=== PATIENT | female | born 2000 | race Caucasian/White ===

== ENCOUNTER 2020-08-16 14:46 | Emergency (ER) | payer BC, SELFPAY ==
--- NOTE | ~2020-08-16 | US_ITS ---
EXAMINATION: US pelvic complete DATE: 08/16/2020 15:42 INDICATION: Pelvic pain TECHNIQUE: Multiple transabdominal and endovaginal sonographic images of the pelvis were obtained. COMPARISON: None. FINDINGS: The uterus measures 7.5 x 3.0 x 3.7 cm. The endometrial complex measures <2 9 2 mm mm in thickness. T-shaped IUD in expected position within the endometrial canal. There is a small amount of anechoic f luid within the endocervical canal. 4 mm nonshadowing echogenic nodule centered by small amount of an echoic fluid within the endocervical canal. The right ovary is not visualized The left ovary measures 2.7 x 2.2 x 1.9 cm. 1.8 cm anechoic cyst/follicle in the left ovary. As for flow with arterial wavef orm in the left ovary. There is no free fluid in the pelvis. IMPRESSION: 1. IUD in expected position within the endometrial canal. 2. Small amount of fluid surrounding a 4 mm nodular echogenic region in the endocervical canal which could represent transient clot, string related to the IUD or a cervical polyp. Consider follow-up ult rasound or hysteroscopy for determination. Reviewed, dictated and finalized at location A. IMPRESSION: 1. IUD in expected position within the endometrial canal. 2. Small amount of fluid surrounding a 4 mm nodular echogenic region in the end ocervical canal which could represent transient clot, string related to the IUD or a cervical polyp. Consider follow-up ultrasound or hysteroscopy for determi nation.
[2020-08-16 14:49] VITALS: BP 134/73; PULSE 83; RESP 18; TEMP 36.5; O2SAT 100
--- NOTE | 2020-08-16 14:53 | ED.ABDPAIN ---
HPI - Abdominal Pain General Chief Complaint: Abdominal Pain Stated Complaint: left abd pain Time Seen by Provider: 08/16/20 14:49 History of Present Illness HPI narrative: Pelvic pain for the past 2 days. Started suddenly 2 days ago. Severe. Left sided. radiated into the left thigh. Seemed to subside that night. Returned this morning. Feels like period cramps, but worse. No associated symptoms. She has not taken anything for her pain today. she has had an IUD for the past 3 years. Related Data Allergies Allergy/AdvReac Type Severity Reaction Status Date / Time No Known Allergies Allergy Unverified 08/16/20 14:52 Review of Systems Review of Systems: All systems reviewed & are unremarkable except as noted in HPI and below Constitutional: Constitutional: Denies chills and Denies fever(s) Cardiovascular: Cardiovascular: Denies chest pain Respiratory: Respiratory: Denies cough and Denies dyspnea Gastrointestinal: Gastrointestinal: Denies constipation, Denies diarrhea, Denies nausea and Denies vomiting Genitourinary: Genitourinary: Denies hematuria, Denies nocturia, Denies dysuria and Reports pelvic pain Musculoskeletal: Musculoskeletal: Denies back pain Neurologic: Denies dizziness and Denies weakness [facility] Past Medical History Medical History IUD (intrauterine device) in place Social History Social History Gender identity (if verbalized by the patient): Female Exam Const: General: healthy appearing, no acute distress and alert Orientation/consciousness: patient oriented x3 HENMT: Head: normal to inspection Neck: Neck: normal visual inspection and no lymphadenopathy Chest: Chest palpation & inspection: no tenderness Resp: Effort & Inspection: normal respiratory effort Auscultation: clear to auscultation bilaterally, no rales, no rhonchi and no wheezes Cardio: Jugular venous distension: no JVD Rate: regular rate Rhythm: regular rhythm Heart sounds: no murmurs GI: Inspection: non-distended GI Palp: Yes Soft to palpation and No Tenderness to palpation present (GI) : External Female Exam: normal external appearance Speculum Exam - Vagina: abnormal vaginal discharge malodorous, caseous and yellow Speculum Exam - Cervix: Abnormal cervical discharge present Skin: General skin exam: normal color Neuro: General: patient oriented x3 and moves all extremities Speech: normal speech Extrem: General: no edema Psych: Appearance: well kempt Affect: normal affect Course Vital Signs Vital signs: Vital Signs Temperature 36.5 C 08/16/20 14:49 Pulse Rate 83 08/16/20 14:49 Respiratory Rate 18 08/16/20 14:49 Blood Pressure 134/73 08/16/20 14:49 Pulse Oximetry 100 08/16/20 14:49 Temperature 36.5 C 08/16/20 14:49 Pulse Rate 87 08/16/20 17:30 Respiratory Rate 14 08/16/20 17:30 Blood Pressure 122/74 08/16/20 17:30 Pulse Oximetry 98 08/16/20 17:30 MDM - Abdominal Pain MDM Narrative Medical decision making narrative: Exam is suspicious for cervicitis. I will test and treat empirically. She has OB follow-up Lab Data Attestation: I reviewed the patient's lab results. Result diagrams: 08/16/20 15:02 08/16/20 15:02 Labs: Lab Results 08/16/20 08/16/20 08/16/20 Range/Units 15:02 15:02 15:02 WBC 8.7 (4.5-10.0) K/mm3 RBC 5.06 (4.2-5.4) M/mm3 Hgb 15.5 H (12.0-15.0) g/dL Hct 44.7 (37.0-47.0) % MCV 88.3 (80-100) fl MCH 30.6 (26-34) pg MCHC 34.7 (32-36) g/dl RDW 12.5 (11.5-14.5) % Plt Count 264 (150-375) k/mm3 MPV 8.3 (7.4-10.4) fl Immature Gran % (Auto) 0.3 (0-0.5) % Neut % (Auto) 72.1 (45.5-73.1) % Lymph % (Auto) 19.0 (18.3-44.2) % [place] % (Auto) 8.3 (2.6-8.5) % Eos % (Auto) 0.1 (0-4.4) % Baso % (Auto) 0.2 (0.2-1.2) % Lymph # (Auto) 1.64 (0.9-3.2) K/mm3 [place] # (Auto) 0.7 H (0.1-0.6) K/mm3 Eos # (Auto) 0.0 (0-0.3) K/mm3 Baso # (Auto)
[2020-08-16] MEDS: KETOROLAC 30 MG/ML VIAL (*BKC) IV PUSH (15:10)
[2020-08-16 15:12] LABS: Basophils Percent Auto 0.2 % (0.2-1.2); Eosinophils Percent Auto 0.1 % (0-4.4); Hematocrit 44.7 % (37.0-47.0); Hemoglobin 15.5 g/dL (12.0-15.0); Immature Granulocyte Absolute 0.03 K/mm3 (0.00-0.031); Immature Granulocyte Percent A 0.3 % (0-0.5); Lymphocytes Absolute Auto 1.64 K/mm3 (0.9-3.2); Mean Corpuscular HGB Conc 34.7 g/dl (32-36); Mean Corpuscular Hemoglobin 30.6 pg (26-34); Mean Corpuscular Volume 88.3 fl (80-100); Mean Platelet Volume 8.3 fl (7.4-10.4); Monocytes Absolute Auto 0.7 K/mm3 (0.1-0.6); Monocytes Percent Auto 8.3 % (2.6-8.5); Neutrophils Absolute Auto 6.2 K/mm3 (1.3-6.7); Neutrophils Percent Auto 72.1 % (45.5-73.1); Platelet Count Result 264 k/mm3 (150-375); Red Blood Count 5.06 M/mm3 (4.2-5.4); Red Cell Distribution Width 12.5 % (11.5-14.5); White Blood Count 8.7 K/mm3 (4.5-10.0)
[2020-08-16 15:13] LABS: Add Urine Microscopic? NO; Appearance Urine Clear (Clear); Bilirubin Urine Negative (Negative); Blood Urine Negative (Negative); Color Urine Colorless (Yellow); Glucose Urine UA Negative (Negative); Ketones Urine Negative (Negative); Leukocyte Esterase Ur Negative LEU/UL (Negative); Nitrate Urine Negative (Negative); Protein Urine Negative (Negative); Urobilinogen Urine Negative mg/dL (<2.0)
[2020-08-16 15:15] LABS: Specific Grav Ur 1.004 (1.001-1.035)
[2020-08-16 15:23] LABS: Alanine Aminotransferase 11 U/L (4-35); Albumin Level 4.9 g/dL (3.5-5.1); Alkaline Phosphatase 55 U/L (38-126); Anion Gap 9 mmol/L (8-16); Aspartate Amino Transferase 21 U/L (14-36); Blood Urea Nitrogen 7 mg/dL (7-17); Calcium 9.6 mg/dL (8.4-10.2); Carbon Dioxide 29 mmol/L (22-30); Chloride 100 mmol/L (98-107); Estimated Glomerular Filt Rate > 60; Glucose 87 mg/dL (65-105); Lipase 124 U/L (23-300); Potassium 4.3 mmol/L (3.4-5.0); Sodium 138 mmol/L (137-145)
[2020-08-16] MEDS: WATER, STERILE FOR INJECTION 10 ML VIAL XX (17:26)
[2020-08-16] MEDS: AZITHROMYCIN 250 MG TABLET 1000 MG PO (17:26)
[2020-08-16] MEDS: cefTRIAXone 250 MG VIAL IM (17:26)
[2020-08-16] MEDS: metroNIDAZOLE 250 MG TABLET 2000 MG PO (17:26)
[2020-08-16 17:30] VITALS: BP 122/74; PULSE 87; RESP 14; O2SAT 98
== END 2020-08-16 17:35 | disposition home or self-care (01) ==
PROVIDERS: Emergency Provider Emergency Medicine; PCP Pediatrics
DX: N72 Inflammatory disease of cervix uteri (principal); Z97.5 Presence of (intrauterine) contraceptive device
CPT/HCPCS: 36415; 76856; 80053; 81003; 81025; 83690; 85025; 87070; 87491; 87591; 87808; 96372; 96374; 99284; A9270; J0696; J1885